=== PATIENT | male | born 1970 | race Hispanic/Latino ===

== ENCOUNTER 2019-03-23 18:10 | Observation (INO) | payer OTHER ==
[~2019-03-23] VITALS: Ht 175.3 cm; Wt 72.8 kg
[~2019-03-23 18:10] MED LIST: CATAPRES0.1 MG PO; FLUOXETINE HCL60 MG PO; IBU600 MG PO; RISPERDAL1 MG PO
--- OUTSIDE RECORDS SUMMARY | 2019-03-23 18:12 | XMS ---
PreManage Notification: CECILIO Security Reference Test Clerk Events No recent Security Events currently on file CRITERIA MET - [facility] - Has Care Guidelines CARE PROVIDERS MICHAELA RODRIGUEZ Physician Routing Machine Operator 02/12/2018-Current PHONE: [phone] [facility] has no Care Guidelines for this patient. Care History Medical/Surgical 02/12/2018 [facility] - CHW RECEIVED ED PHYSICIAN CONSULT TO HELP PATIENT SET UP WITH A PCP. - CHW CONTACTED PATIENT AND [facility]. - PATIENT HAS AN APT WITH [facility] ON SundayFebruary @ 10:30AM. - PATIENT WILLARD HAD ALSO REQUESTED AN APT FOR PRIMARY CARE PHYSICIAN WHICH CHW HELPED WITH. BOTH HAVE APTS THE SAME DAY WITH SHANIQUA RODRIGUEZ TO ESTABLISH CARE. E.D. VISIT COUNT (12 MO.) [address] [place] [address] TOTAL 1 NOTE: Visits indicate total known visits. ED/UCC VISIT TRACKING (12 MO.) 03/23/2019 18:11 [facility] [place] TYPE: Emergency COMPLAINT: - POSSIBLE SEIZURE INPATIENT VISIT TRACKING (12 MO.) No inpatient visits to display in this time frame [email or web address]
[2019-03-23] MEDS ORDERED: GABAPENTIN300 MG PO (18:21)
--- NOTE | 2019-03-23 20:48 | NUR ---
PT ARRIVES TO FLOOR VIA STRETCHER WITH HIS AND 2 KIDS PRESENT. PT ABLE TO STAND AND TRANFER TO THE BED, TOLERATED WELL. PT ASSESSMENT COMPLETE. PT DENIES PAIN, NAUSEA, OR SOB. TELEMETRY UNIT PLACED, SONAL, HR 56. IV PATENT. CALL LIGHT IN REACH. COMBINER OPERATOR REMAINS IN ROOM TO COMPLETE ADMISSIONS PROCESS.
--- NOTE | 2019-03-23 22:10 | NUR ---
SCHEDULED MEDICATIONS ADMINISTERED. MEDCIATION EDUCATION PROVIDED. PT STATES UNDERSTANDING. PT UP TO USE THE BATHROOM WITH SBA. PT TOLERATED WELL. ENCOURAGED PT TO CALL FOR ASSSITANCE DUE TO RECENT EVENTS. PT STATES UNDERSTANDING. CALL LIGHT IN REACH. PT DENIES FURTHER NEEDS.
--- NOTE | 2019-03-23 23:15 | NUR ---
ENGINEERING EXECUTIVE TO ROOM TO REPLACE TELE LEAD. PT WAKES EASILY. DENIES NEEDS. CALL LIGHT IN REACH.
--- NOTE | 2019-03-24 02:30 | NUR ---
PT ASSESSMENT COMPLETE. PT RESTING IN BED WITH EYES CLOSED, WAKES EASILY. PT REMAINS DROWSY DURING ASSESSMENT. DENIES PAIN, NAUSEA, OR SOB. PT DENIES ANY FEELINGS OF DIZZINESS, LIGHTHEADEDNESS SINCE LAST ASSESSMENT. PT DENIES NEED TO VOID AT THIS TIME. TELE #1, VICTORINO, HR 59. PT DENIES FURTHER NEEDS AT THIS TIME. CALL LIGHT WITHIN REACH.
--- NOTE | 2019-03-24 06:05 | NUR ---
PT RESTING IN BED WITH EYES CLOSED. RESPIRATIONS EVEN AND UNLABORED. DOES NOT WAKE WHILE CONTRACT CONSULTANT IN DOORWAY. CALL LIGHT IN REACH.
--- NOTE | 2019-03-24 07:30 | NUR ---
REPORT RECIEVED FROM HILLARY CABAN. PTACRISEARRavi TO BE SLEEPING.
--- NOTE | 2019-03-24 09:26 | NUR ---
ADMINSTERED MORNING MEDS.HELD CATAPRES FOR BP OF 100/63. BUSINESS CONTINUITY GLOBAL DIRECTOR IN ROOMTO DO SCHEDULED ECHO. FAMILY IN ROOM. PT DENIES WANTING BREAKFAST. ATE BEDSIDE GRANOLA BAR.
[2019-03-24] MEDS ORDERED: VITAMIN D21250 MCG PO (09:34)
--- NOTE | 2019-03-24 09:45 | NUR ---
SPOKE WITH PATIENT IN ROOM. PRESENT. PATIENT LIVES AT HOME. IS EMPLOYED. DOESN'T DRIVE. WILL DRIVE HIM TO FOLLOW UP APPOINTMENTS. DISCUSSED TESTING BEING ORDERED. DISCUSSED POSSIBLY GOING HOME WITH ELECTRONIC DEVICE MONITOR. IS FAMILIAR A FAMILY MEMBER HAS DONE THAT BEFORE. DISCUSSED SAFEY WITH SYNCOPE. QUESTIONS ANSWERED. WILL FOLLOW NEEDED.
--- NOTE | 2019-03-24 09:58 | NUR ---
PATIENT IN BED RESTING, FAMILY IN ROOM. BREAKFAST ORDERED. CALL LIGHT IN REACH. NO FURTHER NEEDS AT THIS TIME.
--- NOTE | 2019-03-24 10:16 | NUR ---
MED REC COMPLETE
[2019-03-24] MEDS ORDERED: PRAZOSIN HCL5 MG PO (10:43)
--- NOTE | 2019-03-24 10:56 | NUR ---
ADMINSTERED LEVOTHYROID PER ORDER. EDUCATED ON MED. SITTING ON BED WITH PT.
[2019-03-24] MEDS ORDERED: LEVOTHYROXINE125 MCG PO (11:17)
--- NOTE | 2019-03-24 12:46 | NUR ---
PT AMBULATING IN ROOM WITH FAMILY. ANXIOUSLY AWAITING DISCHARGE. IMAGING CALLED FOR ECHO RESULTS.
--- NOTE | 2019-03-24 13:00 | NUR ---
PT GIVEN DISCHARGE PACKET AND EDUCATION ON PLAN FOR MEDICATIONS AND FOLLOW UP APPOINTMENT, ANY FURTHER SYMPTOM OR SIGNS OF WEAKNESS OR SYNCOPE TO CALL 911 OR SEEK MEDICAL ATTENTION BASED ON SYMPTOM SEVERITY. FOLLOW UP APPOINTMENT TOMORROW. Mar TO BE SEEN BY PCP OFFICE. PT VERBALIZED UNDERSTANDING OF MEDICATIONS PURPOSE AND LAST DOSE NEXT DOSE, NO FURTHER QUESTIONS, V/S STABLE IV SITE REMOVED WNL TIP INTACT. PHARM OSIRIS COMPLETED CONSULT MED EDUCATIONS.
--- NOTE | 2019-03-24 13:16 | EKG ---
[facility] [address] [facility] [place], [place] [address] Signed Sinus rhythm with occasional premature ventricular complexes Otherwise normal ECG No previous ECGs available Confirmed by JONELLE SEGOVIA DO ([id number]) on 03/24/2019 1:16:44 PM Electronically Signed By: JONELLE SEGOVIA DO 03/24/19 1316 PATIENT NAME: DASIA HERNANDES Electrocardiogram DATE OF : 66 PHYSICIAN: JONELLE SEGOVIA DO REPORT #: [id number] REPORT IS CONFIDENTIAL AND NOT TO BE RELEASED WITHOUT AUTHORIZATION
--- NOTE | 2019-03-24 14:15 | NUR ---
ENTERED RM, PT PACING BACK AND FORTH IN RM, SITTING ON BED AND CHILDREN IN RM WELL. PT ATATED HE IS REALLY ANXIOUS FOR DC. INSTRUCTED PT TO WHAT THEY CAN EXPECT FOR DC, BOTH ACKNOWLEDGE THEIR UNDERSTANDING. EXTENDED A BLESSING TO PT, WILL FOLLOW NEEDED
--- NOTE | 2019-03-27 10:44 | NUR ---
TALKED WITH PT VIA PHONE FOR FOLLOW UP, SAYS HE IS STILL WEARING THE HOLTER MONITER AND ONLY HAD A BRIEF BOUGHT OF CP LAST EVENING. ASKED IF HE WROTE IT DOWN IN THE HOLTER LOG AND HE STATED NO BUT HE NEEDS TO DO THAT. STATES HE GOT HIS RX FILLED AND IS TAKING IT. UNDERSTANDS THE SIDE EFFECTS AND PURPOSE OF HIS MEDS. STATES HIS CARE WAS GOOD AND STAFF WERE REALLY RESPECTFUL OF HIM. HE APPRECIATED THE STAFFS CARE.
== END 2019-03-24 13:15 | disposition home or self-care (01) ==
LOC: ED 18:10 → MS 18:12
PROVIDERS: ADMIT Student in an Organized Health Care Education/Training Program
DX: R55 Syncope and collapse (principal); F17.200 Nicotine dependence, unspecified, uncomplicated; F43.10 Post-traumatic stress disorder, unspecified; E03.9 Hypothyroidism, unspecified; F39 Unspecified mood [affective] disorder; Z79.899 Other long term (current) drug therapy
CPT/HCPCS: 36415; 70450; 80048; 80053; 80061; 83735; 83880; 84100; 84439; 84443; 84484; 85025; 93005; 93010; 93306; 93880; 99285-25; G0378

== ENCOUNTER 2019-12-11 18:28 | Emergency (ER) | payer OTHER ==
[~2019-12-11] VITALS: Ht 172.7 cm; Wt 77.1 kg
[~2019-12-11 18:28] MED LIST changes: +GABAPENTIN300 MG PO; +LEVOTHYROXINE125 MCG PO; +PRAZOSIN HCL5 MG PO; +VITAMIN D21250 MCG PO
--- OUTSIDE RECORDS SUMMARY | 2019-12-11 18:30 | XMS ---
PreManage Notification: CECILIO Security Yoker Machine Operator Events No recent Security Events currently on file CRITERIA MET - [facility] - Has Care Guidelines CARE PROVIDERS MICHAELA RODRIGUEZ Physician Assurance Auditor 02/12/2018-Current PHONE: [phone] Guidelines Source: [facility] Guidelines Date: 03/24/2019 Care Coordination: Historically has received therapy and medication management through [facility] (currently not engaged).\T\nbsp; Please contact [facility] for mental health concerns.\T\[facility]; [place] Office: [phone]. Care History Medical/Surgical 02/12/2018 [facility] - CHW RECEIVED ED PHYSICIAN CONSULT TO HELP PATIENT SET UP WITH A PCP. - CHW CONTACTED PATIENT AND [facility]. - PATIENT HAS AN APT WITH [facility] ON SundayFebruary @ 10:30AM. - PATIENT WILLARD HAD ALSO REQUESTED AN APT FOR PRIMARY CARE PHYSICIAN WHICH CHW HELPED WITH. BOTH HAVE APTS THE SAME DAY WITH SHANIQUA RODRIGUEZ TO ESTABLISH CARE. E.D. VISIT COUNT (12 MO.) [address] [facility]. TOTAL 2 NOTE: Visits indicate total known visits. ED/UCC VISIT TRACKING (12 MO.) 12/11/2019 18:28 [facility] TYPE: Emergency COMPLAINT: - LT SIDE PAIN INJURY 03/23/2019 18:11 [facility] TYPE: Emergency COMPLAINT: - POSSIBLE SEIZURE INPATIENT VISIT TRACKING (12 MO.) 03/23/2019 18:12 [facility] TYPE: Observation COMPLAINT: - SYNCOPE DIAGNOSES: - Hypothyroidism, unspecified - Post-traumatic stress disorder, unspecified - Unspecified mood [affective] disorder - Other terminal clerk (current) drug therapy - Syncope and collapse - Nicotine dependence, unspecified, uncomplicated [id number]
[2019-12-11] MEDS ORDERED: METOPROLOL TART25 MG PO (18:46)
== END 2019-12-11 19:07 | disposition left against medical advice (07) ==
LOC: ED 18:28
DX: T14.8XXA Other injury of unspecified body region, initial encounter (principal); W11.XXXA Fall on and from ladder, initial encounter

== ENCOUNTER 2020-04-25 12:11 | Emergency (ER) | payer OTHER ==
[~2020-04-25] VITALS: Ht 172.7 cm; Wt 77.1 kg
[~2020-04-25 12:11] MED LIST changes: +METOPROLOL TART25 MG PO
--- OUTSIDE RECORDS SUMMARY | 2020-04-25 12:12 | XMS ---
PreManage Notification: CECILIOOCTOBER Security Records Analyst Events 1 event(s) in the past 18 months Most recent security events: Elopement at [facility] 12/11/2019 18:28 - Other Details: PATIENT LWBS. CRITERIA MET - [facility] - Has Care Guidelines CARE PROVIDERS MICHAELA RODRIGUEZ Physician Crystal Grinder 02/12/2018-Current PHONE: [phone] Guidelines Source: [facility] Guidelines Date: 03/24/2019 Care Coordination: Historically has received therapy and medication management through [employer] (currently not engaged).\T\nbsp; Please contact [employer] for mental health concerns.\T\[facility]; [place] Office: [phone]. Care History Medical/Surgical 02/12/2018 [facility] - CHW RECEIVED ED PHYSICIAN CONSULT TO HELP PATIENT SET UP WITH A PCP. - CHW CONTACTED PATIENT AND [facility]. - PATIENT HAS AN APT WITH [facility] ON SundayFebruary @ 10:30AM. - PATIENT WILLARD HAD ALSO REQUESTED AN APT FOR PRIMARY CARE PHYSICIAN WHICH CHW HELPED WITH. BOTH HAVE APTS THE SAME DAY WITH SHANIQUA RODRIGUEZ TO ESTABLISH CARE. E.D. VISIT COUNT (12 MO.) 2 [facility] TOTAL 2 NOTE: Visits indicate total known visits. ED/UCC VISIT TRACKING (12 MO.) 04/25/2020 12:11 [facility] TYPE: Emergency COMPLAINT: - BLOOD IN STOOL 12/11/2019 18:28 [facility] TYPE: Emergency COMPLAINT: - LT SIDE PAIN INJURY DIAGNOSES: - Other injury of unspecified body region, initial encounter - Fall on and from ladder, initial encounter INPATIENT VISIT TRACKING (12 MO.) No inpatient visits to display in this time frame [email or web address]
== END 2020-04-25 13:28 | disposition home or self-care (01) ==
LOC: ED 12:11
DX: K60.2 Anal fissure, unspecified (principal); K21.9 Gastro-esophageal reflux disease without esophagitis; I10 Essential (primary) hypertension; E03.9 Hypothyroidism, unspecified; F17.200 Nicotine dependence, unspecified, uncomplicated; Z79.899 Other long term (current) drug therapy
CPT/HCPCS: 80053; 83690; 85025; 99284